=== PATIENT | female | born 1955 | race Two or more races ===

== ENCOUNTER 2025-01-14 10:05 | Inpatient (IN) | payer MEDICARE, MEDICAID ==
[~2025-01-14] VITALS: Ht 160 cm; Wt 112.0 kg
--- NOTE | 2025-01-14 10:23 | ED.PDOC ---
HPI Comments HPI: Pb 70 y.o female presents to the ED for a chief complaint of intermittent chest pain that started 2 days ago. Patient reports pain presents spontaneously at rest of on exertion and states it only lasts a couple minutes before is subsides. Patient mentions there are no alleviating or precipitating factors. Patient denies any nausea, vomiting, diarrhea, fever, chills, SOB, leg swelling, or recent illness. Patient is on aspirin 81mg. At this time, patient denies any chest pain upon assessment. Vitals Temp: 97.6 F HR:104 BP: 102/64 RR: 18 SPO2: 93% RA Past Medical history: HTN. HLD, DM Past Surgical history: CABG x4-5 yrs ago and appendectomy Social History: Denies smoking, ETOH, and drug use. Allergies: NKA PB: CP HPI: Poor Historian. Past Medical History: Past Surgical History: REVIEW OF SYSTEMS: CONSTITUTIONAL: Denies acute: fever, diaphoresis, chills, generalized weakness. HEAD: Denies acute: headache, photophobia Eyes: Denies acute: Double vision, vision loss, eye pain, eye discharge. EARS: Denies acute: tinnitus, hearing loss, ear discharge, ear pain, THROAT: Denies acute: sore throat, swelling, difficulty swallowing , pain with swallowing, change in voice. NECK: Denies acute: neck pain, neck swelling, stiff neck. HEART: Denies acute : palpitations, LUNGS: Denies acute: SOB, wheezing, cough, hemoptysis ABDOMEN: Denies acute: abdominal pain, Nausea, Vomiting, diarrhea, melena , hematemesis, hematochezia SKIN: Denies acute: rash, redness, lesions, itchiness. EXTREMITIES: Denies acute: calf pain, numbness, tingling, weakness, denies pain in extremity. Denies acute: Low back pain. Neuro: Denies acute: focal neurological deficit, motor or sensory focal neurological deficit, tremors, seizure like activity, confusion, dizziness, change in mental status, loss of bowel or bladder function, cauda equina like symptoms. : Denies acute: dysuria, hematuria, flank pain, increase in urinary frequency. PSYCH: Denies acute: hallucination, suicidal ideation, homicidal ideation. FEMALE: Denies acute: abnormal vaginal bleeding, foul odor, unusual discharge. PHYSICAL EXAM: General: ---mild-----acute distress, awake and alert. Head: normocephalic, atraumatic. Neck: supple, trachea is midline, no swelling. Throat: Normal phonation. Eyes:, no erythema, no purulent discharge, no proptosis, no icterus. Heart: regular TACHYCARDIA, no significant murmur appreciated. Lungs: no apparent respiratory distress, Able to speak in full sentences. No wheezing, no rhonchi, no crackles. No stridors Clear to auscultation bilaterally. Abdomen: non tender to palpation, non distended, soft, no guarding, no rebound, + bowel sounds. Obese Neuro: Awake, Alert, oriented to name, self, situation, follows commands GCS=15. Speech is normal. Skin: no petechia, no purpura, no cyanosis, non-pale, not jaundice. Lower extremities: --1/4 bilateral- Pitting edema no deformity, no focal swelling, no calf TTP. Makes eye contact. moves all four extremities. Face: no apparent facial droop. Ambulating in the ED independently with a cane ED COURSE: DISCLAIMER: This medical document was created using an electronic medical record system with voice recognition software and computerized dictation system. Although this document has been carefully reviewed, there might still be some phonetic and typographical errors. Occasional wrong-word or "sound-alike" substitutions may have occurred due to the inherent limitations of voice recognition software. These areas are purely typographical due to imperfections of the software programs and do not reflect any compromise in the patient's medical care. Please read the chart carefully and recognize, using context, where these substitutions have occurred. Chief Complaint: Chest Pain Time Seen by MD: 10:20 Reviewed Notes: Medications, Allergies Allergies: Coded Allergies: Cephalexin (Verified Allergy, Unknown, 01/14/25) Information Source: Patient Mode of Arrival: Ambulatory Severity: Moderate Timing: Days (2) Duration: Intermittent Past Medical History PAST MEDICAL HISTORY: DM, High Lipids, HTN Surgical History: Appendectomy, CABG FACILITIES ENGINEERING MANAGER History: No Pertinent FACILITIES ENGINEERING MANAGER History Family History Family History: Unknown Social History Smoker: Non-Smoker Alcohol: Denies ETOH Use Drugs: Denies Drug Use Lives In: Home Was a procedure done? Was a procedure done?: No CP Differential Dx Differential Diagnosis: Sinus Tachycardia Differential Diagnosis: Angina, Chest Wall Pain, Myocardial Infarction, Pericarditis X-Ray, Labs, Meds, VS Vital Signs Date Time Temp Pulse Resp B/P (MAP) Pulse Ox O2 Delivery O2 Flow Rate FiO2 01/14/25 17:00 135 19 99/64 (76) 93 01/14/25 16:00 135 01/14/25 15:15 134 17 99/57 (71) 92 01/14/25 13:25 133 01/14/25 12:45 78/55 01/14/25 11:28 139 18 92 Room Air* 0 21 01/14/25 11: 97.9 140 18 79/62 (68) 92 97.9 01/14/25 11:12 137 01/14/25 10:16 138 01/14/25 10:07 97.6 104 18 102/64 93 97.6 Lab Test 01/14/25 16:40 01/14/25 16:32 01/14/25 15:15 01/14/25 11:55 Range/Units Troponin I High Sensitivity 17 19 18 </=34 ng/L Urine Color Colorless Yellow Urine Clarity Turbid H Clear Urine pH 5.0 5.0-9.0 Urine Specific [place] 1.018 1.001-1.035 Urine Protein Trace H Negative Urine Ketones Negative Negative Urine Blood Trace H Negative /uL Urine Nitrite 2+ H Negative Urine Bilirubin Negative Negative Urine Urobilinogen Normal Negative mg/dL Urine Leukocyte Esterase 3+ Negative /uL Urine RBC 18 0 - 4 /hpf Urine WBC Clumps Present None Seen /hpf Urine Microscopic WBC 172 H 0-5 /HPF Urine Squamous Epithelial Cells Few <5 /hpf Urine Bacteria Few H None Seen /hpf Urine Mucus Few None Seen Urine Yeast (Budding) Few None Seen /hpf Urine Glucose 4+ H Normal mg/dL White Blood Count 11.1 H 4.4-10.8 10^3/uL Red Blood Count 5.40 H 4.0-5.20 10^6/uL Hemoglobin 14.2 12.2-16.2 g/dL Hematocrit 46.7 H 36.0-46.0 % Mean Corpuscular Volume 86.4 80.0-100.0 fL Mean Corpuscular Hemoglobin 26.4 L 28.0-32.0 pg Mean Corpuscular Hemoglobin Concent 30.5 L 32.0-36.0 g/dL Red Cell Distribution Width 17.7 H 11.8-14.3 % Platelet Count 248 140-450 10^3/uL Mean Platelet Volume 7.7 6.9-10.8 fL Neutrophils (%) (Auto) 64.7 37.0-80.0 % Lymphocytes (%) (Auto) 25.2 10.0-50.0 % Monocytes (%) (Auto) 8.3 0.0-12.0 % Eosinophils (%) (Auto) 1.3 0.0-7.0 % Basophils (%) (Auto) 0.5 0.0-2.0 % Neutrophils # (Auto) 7.2 1.6-8.6 10 ^3/uL Lymphocytes # (Auto) 2.8 0.4-5.4 10 ^3/uL Monocytes # (Auto) 0.9 0-1.3 10 ^3/uL Eosinophils # (Auto) 0.1 0-0.8 10 ^3/uL Basophils # (Auto) 0.1 0-0.2 10 ^3/uL Nucleated Red Blood Cells 0.2 % D-Dimer, Quantitative 2.33 H 0.0-0.49 mg/L FEU Sodium Level 139 136-145 mmol/L Potassium Level 5.3 H 3.5-5.1 mmol/L Chloride Level 108 H 98-107 mmol/L Carbon Dioxide Level 19 L 20-31 mmol/L Anion Gap 12 5-15 Blood Urea Nitrogen 30 H 9-23 mg/dL Creatinine 1.39 H 0.550-1.02 mg/dL Glomerular Filtration Rate Calc 41 >90 mL/min BUN/Creatinine Ratio 21.6 H 10.0-20.0 Serum Glucose 158 H 74-106 mg/dL Calcium Level 8.9 8.7-10.4 mg/dL Magnesium Level 2.4 1.6-2.6 mg/dL Total Bilirubin 0.3 0.2-1.0 mg/dL Aspartate Amino Transferase (AST) 21 13-40 U/L Alanine Aminotransferase (ALT) 22 7-40 U/L Alkaline Phosphatase 62 46-116 U/L B-Type Natriuretic Peptide 593.98 0-100 pg/mL Total Protein 6.5 5.7-8.2 g/dL Albumin 4.1 3.2-4.8 g/dL [place] [address] Ph: [phone] DIAGNOSTIC IMAGING Diagnostic Imaging Report : [id number] Signed PATIENT: KIANA MEHTA ACCT: [id number] UNIT: [id number] : 1955 LOC: ER ROOM / BED: / AGE / SEX: 69 / F ADM STATUS: REG ER SERVICE [id number] ORDERING PHYSICIAN: ANA ELIAS DO PROCEDURE(s): CXRP - CHEST PORTABLE REASON: cp ORDER NUMBER(s): [id number], ACCESSION NUMBER(s): [id number] EXAM: XY CHEST PORTABLE Indication: cp Technique: Single frontal view of the chest was obtained Comparison: None FINDINGS: Lines and Tubes: None Lungs: No focal consolidation. Pleura: No effusion. No pneumothorax. Cardiomediastinal contours: Unremarkable. Atherosclerotic vascular calcifications of the thoracic aorta are noted. Bones: No acute osseous abnormality. IMPRESSION: No acute cardiopulmonary disease. ATED BY: UGO RAPHAEL MD DICTATED DATE/TIME: 01/14/25 111 SIGNED BY: UGO RAPHAEL MD SIGNED DATE/TIME: 01/14/25 1119 CC: [place] [id number] Ph: [phone] DIAGNOSTIC IMAGING Diagnostic Imaging Report : [id number] Signed PATIENT: KIANA MEHTA ACCT: [id number] UNIT: [id number] : 1955 LOC: ER ROOM / BED: / AGE / SEX: 69 / F ADM STATUS: REG ER SERVICE [id number] ORDERING PHYSICIAN: ANA ELIAS DO PROCEDURE(s): CTACH - CT ANGIO CHEST CONTRAST REASON: cp ORDER NUMBER(s): [id number], ACCESSION NUMBER(s): [id number] CTA Chest with intravenous contrast INDICATION: cp COMPARISON: None TECHNIQUE: Multidetector spiral CTA of the chest was performed of the chest with intravenous contrast. PULMONARY ANGIOGRAPHY PROTOCOL was utilized using a bolus- tracking technique centered on the main pulmonary artery. Axial, coronal and sagittal multiplanar and MIP reformats were performed. CONTRAST: Type of contrast: Omni 350 Contrast injected: 100 ml Radiation dose : Chest: CTDI volume is 38 mGy. Dose-length product is 1053 mGy*cm The dose indicators for CT are the volume computed Tomography (CT) dose Index (CTDIvol) and the dose Length product (DLP), and are measured in units of mGy and mGy-cm, respectively. These indicators are not patient dose, but values generated from the CT scanner acquisition factors. The report includes radiation exposure data for exposures received during this examination. Findings: Pulmonary artery: No pulmonary embolism. Main pulmonary artery dilated. Lower neck: Calcified left thyroid cyst or nodule. Lungs: Mild consolidation right lung base. Atelectasis in the lung bases. Heart/Vascular Structures: Kblt-ey-tggldror cardiomegaly. Lymph Nodes: Subcentimeter mediastinal lymph nodes. Pleura: No pleural effusion or significant pneumothorax. Musculoskeletal: No acute osseous abnormality. Soft tissues: Normal. Upper abdomen: Limited portions of the upper abdomen are unremarkable. IMPRESSION: 1. No pulmonary embolism. Main pulmonary artery dilated suggesting pulmonary arterial hypertension. [id number] cardiomegaly. 2. Mild consolidation in the right lower lung. Atelectasis in the lung bases. Clinical correlation and continued follow-up is recommended. HS:Y ATED BY: WILLEM WADE MD DICTATED DATE/TIME: 01/14/251717 SIGNED BY: WILLEM WADE MD SIGNED DATE/TIME: 01/14/251717 CC: Time of 1ST Reevaluation: 13:43 ( OF NOW ALL LABS ARE STILL PENDING ACCEPT D- DIMER AND BNP) Reevaluation 1ST: Unchanged Time of 2ND Reevaluation: 16:01 ( OF NOW CHEMISTRY IS STILL PENDING. NEEDED FOR CTA ANGIOGRAM OF THE CHEST) Reevaluation 2ND: Improved Patient Education/Counseling: Diagnosis, Treatment Family Education/Counseling: Other Comments MDM: patient presented with the above HPI.-cardiac----workup was initiated. patient was found with the above mentioned diagnosis. the following medications were ordered: please refer to order lists of meds and tests obtained by myself Dr. Elias. Patient ED course and VS have been stabilized. Patient has been reassessed in the ED and remained in a stable condition. Pertinent incidental findings were discussed with the patient and/or family. Patient/family voices understanding and is agreeable with plan. Patient has been observed in the ED adequate length of time to insure improvement/stability. Escalation of care considered: Consideration of escalation to observation or admission Patient was given Lasix, aspirin, rule out PE. Patient was ADMITTED to the medicine team for further evaluation and treatment of their presentation. All the reports of any imaging studies that were ordered by myself were reviewed by myself. Departure 1 Departure Time of Disposition: 10:54 Impression: Primary Impression: Chest pain Additional Impressions: Left bundle branch block Hypotension Tachycardia Lung consolidation Pulmonary artery hypertension UTI (urinary tract infection) Disposition: ADMITTED INPATIENT Admit to: Tele Condition: Guarded Discharged With: Self Critical Care Note Critical Care Time?: Yes (1 hr-critical care time only) Heart Score Heart Score: Heart Score Response (Comments) Value History Moderate Suspicious 1 EKG Normal 0 Age >65 2 Risk Factors >3 or Hx ASHD 2 Troponin Normal limit 0 Total 5 I personally scribed for ANA ELIAS DO ([email or web address]) on 01/14/25 at 10:23. Electronically submitted by Zeny Osman ([facility]). I personally scribed for ANA ELIAS DO ([email or web address]) on 01/14/25 at 10:30. Electronically submitted by Zeny Osman ([facility]). I personally scribed for ANA ELIAS DO ([email or web address]) on 01/14/25 at 12:45. Electronically submitted by Zeny Osman ([facility]). ANA ELIAS DO Jan 14, 2025 10:23
--- NOTE | 2025-01-14 11:21 | DVH ---
EXAM: XY CHEST PORTABLE Indication: cp Technique: Single frontal view of the chest was obtained Comparison: None FINDINGS: Lines and Tubes: None Lungs: No focal consolidation. Pleura: No effusion. No pneumothorax. Cardiomediastinal contours: Unremarkable. Atherosclerotic vascular calcifications of the thoracic ao rta are noted. Bones: No acute osseous abnormality. IMPRESSION: No acute cardiopulmonary disease.
[2025-01-14 11:28] VITALS: PULSE 139; RESP 18; O2SAT 92
[2025-01-14] MEDS: SODIUM CHLORIDE 0.9% 1,000 ML IV ONE (11:40)
[2025-01-14] MEDS: FUROSEMIDE 20 MG/2 ML VIAL IV ONE (12:45)
[2025-01-14 15:29] LABS: Hemoglobin 14.2 g/dL (12.2-16.2)
[2025-01-14] MEDS ORDERED: HYDROcodone-ACET 5/325MG TAB PO PRN (15:30)
[2025-01-14] MEDS ORDERED: DEXTROSE (50%) 50ML SYRG IV PRN (15:30)
[2025-01-14] MEDS ORDERED: ONDANSETRON HCL 4 MG/2 ML VIAL IV PRN (15:30)
[2025-01-14] MEDS ORDERED: DOCUSATE SOD 100 MG CAP PO PRN (15:30)
[2025-01-14] MEDS ORDERED: ACETAMINOPHEN 325 MG TAB PO PRN (15:30)
[2025-01-14 15:31] LABS: Hematocrit 46.7 % (36.0-46.0); Mean Corpuscular Hemoglobin 26.4 pg (28.0-32.0); Mean Corpuscular Volume 86.4 fL (80.0-100.0); Nucleated Red Blood Cells % 0.2 %
[2025-01-14 16:07] LABS: Alanine Aminotransferase 22 U/L (7-40); Albumin 4.1 g/dL (3.2-4.8); Alkaline Phosphatase 62 U/L (46-116); Anion Gap 12 (5-15); BUN/Creatinine Ratio 21.6 (10.0-20.0); Calcium 8.9 mg/dL (8.7-10.4); Sodium 139 mmol/L (136-145); Total Protein 6.5 g/dL (5.7-8.2)
[2025-01-14 16:09] LABS: Bilirubin, Total 0.3 mg/dL (0.2-1.0); Blood Urea Nitrogen 30 mg/dL (9-23); Carbon Dioxide 19 mmol/L (20-31); Chloride 108 mmol/L (98-107); Glucose 158 mg/dL (74-106); Potassium 5.3 mmol/L (3.5-5.1)
[2025-01-14] MEDS: IOHEXOL 350 MG/ML 100ML IJ ONE (16:54)
[2025-01-14] MEDS: MIDODRINE HCL 10 MG TAB PO ONE ×2 (17:10→23:21)
[2025-01-14] MEDS: ACCU-CHEK COMFORT CURVE STRIP VI SCH (17:12)
[2025-01-14] MEDS: InsuLIN REG 1unit/0.01ml Soln (100units/ml) SC SCH ×2 (17:18→21:42)
--- NOTE | 2025-01-14 17:20 | DVH ---
CTA Chest with intravenous contrast INDICATION: cp COMPARISON: None TECHNIQUE: Multidetector spiral CTA of the chest was performed of the chest with intravenous contrast . PULMONARY ANGIOGRAPHY PROTOCOL was utilized using a bolus-tracking technique centered on the main p ulmonary artery. Axial, coronal and sagittal multiplanar and MIP reformats were performed. CONTRAST: Type of contrast: Omni 350 Contrast injected: 100 ml Radiation dose : Chest: CTDI volume is 38 mGy. Dose-length product is 1053 mGy*cm The dose indicators for CT are the volume computed Tomography (CT) dose Index (CTDIvol) and the dose Length product (DLP), and are measured in units of mGy and mGy-cm, respectively. These indicators are not patient dose, but values generated from the CT scanner acquisition factors. The report includes radiation exposure data for exposures received during this examination. Findings: Pulmonary artery: No pulmonary embolism. Main pulmonary artery dilated. Lower neck: Calcified left thyroid cyst or nodule. Lungs: Mild consolidation right lung base. Atelectasis in the lung bases. Heart/Vascular Structures: Zjbu-wv-trmwtznc cardiomegaly. Lymph Nodes: Subcentimeter mediastinal lymph nodes. Pleura: No pleural effusion or significant pneumothorax. Musculoskeletal: No acute osseous abnormality. Soft tissues: Normal. Upper abdomen: Limited portions of the upper abdomen are unremarkable. IMPRESSION: 1. No pulmonary embolism. Main pulmonary artery dilated suggesting pulmonary arterial hypertension. M oob-lc-wxposini cardiomegaly. 2. Mild consolidation in the right lower lung. Atelectasis in the lung bases. Clinical correlation and continued follow-up is recommended. HS:Y
--- NOTE | 2025-01-14 17:38 | DVHHP2 ---
History of Present Illness Reason for Visit: Acute chest pain History of Present Illness The patient is a 70-year-old female with past medical history of hypertension, hyperlipidemia, and diabetes mellitus who presented to [facility] ED with complaint of chest pain. Patient reports she has been experiencing spontane ous chest pain at rest, on exertion, rating 7/10 numeric scale, getting worse that prompted this visit. Patient was seen and evaluated in the ED, laboratory data shows WBC 11.1, platelets 248, sodium 139, potassium 5.3, BUN 30, creatinine 1.39, glucose 158, calcium 8.9, troponin 19, D-dimer 2.33, BNP 593.98, blood pressure 96/72, heart rate 133, temperature 97.9 F, O2 saturation 92% on oxygen. CT Angiography showed no pulmonary embolism; main pulmonary artery dilated suggesting pulmonary atrial hypertension, mild to moderate cardiomegaly, mild consolidation in the right lower lungs. Please see medication orders section in the computer. On my assessment, patient denied chest pain at this moment, no headache, no dizziness, no diaphoresis, currently on oxygen, no nausea, no vomiting, no fever, no chills. Patient was admitted for further evaluation and medical management. Past Medical History HTN. HLD, DM Past Surgical History CABG x4-5 yrs ago, Appendectomy Family History Reviewed, noncontributory to the management of this case. Past Social History The patient lives at home, denies smoking, alcohol or illicit drugs abuse. Review of Systems Constitutional: Yes: Weakness; No: Fever, Chills, Sweats, Malaise, Other Eyes: No: Pain, Vision change, Conjunctivae inflammation, Eyelid inflammation, Other, Redness ENT: No: Ear pain, Ear discharge, Nose pain, Nose discharge, Nose congestion, Mouth pain, Mouth swelling, Throat pain, Throat swelling, Other Respiratory: Shortness of breath, SOB with excertion, Other (SOB at rest); No: Cough, Dry, Wheezing, Hemoptysis, Pleuritic Pain, Sputum, Wheezing Cardiovascular: Chest Pain; No: Palpitations, Orthopnea, Paroxysmal Noc. Dyspnea, Edema, Lt Headedness, Other Gastrointestinal: No: Nausea, Vomiting, Abdominal Pain, Diarrhea, Constipation, Melena, Hematochezia, Other Genitourinary: No Dysuria, No Frequency, No Incontinence, No Hematuria, No Retention, No Other Musculoskeletal: No: other, neck pain, shoulder pain, arm pain, back pain, hand pain, leg pain, foot pain Skin: No: Rash, Lesions, Jaundice, Bruising, Other Neurological: No: Weakness, Numbness, Incoordination, Change in speech, Conf usion, Seizures, Other Allergies: Coded Allergies: Cephalexin (Verified Allergy, Unknown, 01/14/25) Medications Current Medications Medications Dose Ordered Sig/Porfirio Route Start Time Stop Time Status Last Admin Dose Admin Aspirin 81 mg DAILY PO 01/15/25 10:00 Atorvastatin Calcium 20 mg HS PO 01/14/25 22:00 Gabapentin 300 mg TID PO 01/14/25 22:00 Carvedilol 3.125 mg Q12HR PO 01/14/25 22:00 Lisinopril 5 mg DAILY PO 01/15/25 10:00 Furosemide 20 mg DAILY IV 01/15/25 10:00 Midodrine 10 mg TID@0600,1200,1800 PO 01/14/25 18:00 Diagnostic Test (Pha) 1 strip ACHS 01/14/25 17:00 01/14/25 17:12 1 STRIP Insulin Human Regular HS SC 01/14/25 22:00 Insulin Human Regular AC SC 01/14/25 17:00 01/14/25 17:18 3 UNITS Dextrose 50 ml UD PRN IV 01/14/25 15:30 Sodium Chloride 10 ml Q8HR IV 01/14/25 22:00 Acetaminophen/ Hydrocodone Bitart 1 tab Q4HP PRN PO 01/14/25 15:30 Ondansetron HCl 4 mg Q4HP PRN IV 01/14/25 15:30 Docusate Sodium 100 mg BIDPRN PRN PO 01/14/25 15:30 Acetaminophen 650 mg Q6HP PRN PO 01/14/25 15:30 Exam Vital Signs Vital Signs Date Time Temp Pulse Resp B/P (MAP) Pulse Ox O2 Delivery O2 Flow Rate FiO2 01/14/25 13:25 133 01/14/25 12:45 78/55 01/14/25 11:28 18 92 Room Air* 0 21 01/14/25 11:25 97.9 97.9 General Appearance: Alert, Oriented X3, Cooperative, No acute distress HEENT: Atraumatic, PERRLA, EOMI, Mucous membr. moist/pink Respiratory: Normal air movement, Other (Diminished breath sounds) Cardiovascular: Regular rate, Normal S1, Normal S2 Abdominal: Normal bowel sounds, Soft, No tenderness, No hepatospenomegaly, No masses Extremities: No clubbing, No cyanosis, No edema, Normal pulses, No tenderness/swelling Skin: No rashes, No breakdown, No significant lesion Neuro: Normal speech, Normal tone, Sensation intact, Cranial nerves 3-12 NL, Reflexes 2+ Psych/Mental Status: Mental status NL, Mood NL Labs/Xrays Labs Test 01/14/25 16:40 01/14/25 15:15 01/14/25 11:55 Range/Units Troponin I High Sensitivity 17 </=34 ng/L White Blood Count 11.1 H 4.4-10.8 10^3/uL Red Blood Count 5.40 H 4.0-5.20 10^6/uL Hemoglobin 14.2 12.2-16.2 g/dL Hematocrit 46.7 H 36.0-46.0 % Mean Corpuscular Volume 86.4 80.0-100.0 fL Mean Corpuscular Hemoglobin 26.4 L 28.0-32.0 pg Mean Corpuscular Hemoglobin Concent 30.5 L 32.0-36.0 g/dL Red Cell Distribution Width 17.7 H 11.8-14.3 % Platelet Count 248 140-450 10^3/uL Mean Platelet Volume 7.7 6.9-10.8 fL Neutrophils (%) (Auto) 64.7 37.0-80.0 % Lymphocytes (%) (Auto) 25.2 10.0-50.0 % Monocytes (%) (Auto) 8.3 0.0-12.0 % Eosinophils (%) (Auto) 1.3 0.0-7.0 % Basophils (%) (Auto) 0.5 0.0-2.0 % Neutrophils # (Auto) 7.2 1.6-8.6 10 ^3/uL Lymphocytes # (Auto) 2.8 0.4-5.4 10 ^3/uL Monocytes # (Auto) 0.9 0-1.3 10 ^3/uL Eosinophils # (Auto) 0.1 0-0.8 10 ^3/uL Basophils # (Auto) 0.1 0-0.2 10 ^3/uL Nucleated Red Blood Cells 0.2 % D-Dimer, Quantitative 2.33 H 0.0-0.49 mg/L FEU Sodium Level 139 136-145 mmol/L Potassium Level 5.3 H 3.5-5.1 mmol/L Chloride Level 108 H 98-107 mmol/L Carbon Dioxide Level 19 L 20-31 mmol/L Anion Gap 12 5-15 Blood Urea Nitrogen 30 H 9-23 mg/dL Creatinine 1.39 H 0.550-1.02 mg/dL Glomerular Filtration Rate Calc 41 >90 mL/min BUN/Creatinine Ratio 21.6 H 10.0-20.0 Serum Glucose 158 H 74-106 mg/dL Calcium Level 8.9 8.7-10.4 mg/dL Magnesium Level 2.4 1.6-2.6 mg/dL Total Bilirubin 0.3 0.2-1.0 mg/dL Aspartate Amino Transferase (AST) 21 13-40 U/L Alanine Aminotransferase (ALT) 22 7-40 U/L Alkaline Phosphatase 62 46-116 U/L B-Type Natriuretic Peptide 593.98 0-100 pg/mL Total Protein 6.5 5.7-8.2 g/dL Albumin 4.1 3.2-4.8 g/dL PATIENT: KIANA MEHTA ACCT: [id number] UNIT: [id number] : 1955 LOC: ER ROOM / BED: / AGE / SEX: 69 / F ADM STATUS: REG ER SERVICE 1237 ORDERING PHYSICIAN: ANA ELIAS DO PROCEDURE(s): CTACH - CT ANGIO CHEST CONTRAST REASON: cp ORDER NUMBER(s): [id number], ACCESSION NUMBER(s): [id number] CTA Chest with intravenous contrast INDICATION: cp COMPARISON: None TECHNIQUE: Multidetector spiral CTA of the chest was performed of the chest with intravenous contrast. PULMONARY ANGIOGRAPHY PROTOCOL was utilized using a bolus- tracking technique centered on the main pulmonary artery. Axial, coronal and sagittal multiplanar and MIP reformats were performed. CONTRAST: Type of contrast: Omni 350 Contrast injected: 100 ml Radiation dose: Chest: CTDI volume is 38 mGy. Dose-length product is 1053 mGy*cm The dose indicators for CT are the volume computed Tomography (CT) dose Index (CTDIvol) and the dose Length product (DLP), and are measured in units of mGy and mGy-cm, respectively. These indicators are not patient dose, but values generated from the CT scanner acquisition factors. The report includes radiation exposure data for exposures received during this examination. Findings: Pulmonary artery: No pulmonary embolism. Main pulmonary artery dilated. Lower neck: Calcified left thyroid cyst or nodule. Lungs: Mild consolidation right lung base. Atelectasis in the lung bases. Heart/Vascular Structures: [id number] cardiomegaly. Lymph Nodes: Subcentimeter mediastinal lymph nodes. Pleura: No pleural effusion or significant pneumothorax. Musculoskeletal: No acute osseous abnormality. Soft tissues: Normal. Upper abdomen: Limited portions of the upper abdomen are unremarkable. IMPRESSION: 1. No pulmonary embolism. Main pulmonary artery dilated suggesting pulmonary arterial hypertension. Dhrc-[id number] cardiomegaly. 2. Mild consolidation in the right lower lung. Atelectasis in the lung bases. Clinical correlation and continued follow-up is recommended. ORDERING PHYSICIAN: ANA ELIAS DO PROCEDURE(s): CXRP - CHEST PORTABLE REASON: cp ORDER NUMBER(s): [id number], ACCESSION NUMBER(s): [id number] EXAM: XY CHEST PORTABLE Indication: cp Technique: Single frontal view of the chest was obtained Comparison: None FINDINGS: Lines and Tubes: None Lungs: No focal consolidation. Pleura: No effusion. No pneumothorax. Cardiomediastinal contours: Unremarkable. Atherosclerotic vascular lenora cifications of the thoracic aorta are noted. Bones: No acute osseous abnormality. IMPRESSION: No acute cardiopulmonary disease. SEPSIS Sepsis Screen Date sepsis recognized/suspect: Jan 14, 2025 Time Sepsis recognized/suspect: 1010 Recent Procedure: No On Antibiotic Therapy: No Respiratory Rate >20: No Heart Rate >90: No Temp<36 C (96.8 F) or >38.3 C: No SBP <90 or MAP <65 mmHG: No New Acute Mental Status Change: No Is the patient on CPAP, BIPAP,: No Physician Orders Electrocardigram (01/14/25 10:11) Electrocardigram (01/14/25 11:11) Electrocardigram (01/14/25 13:11) Mobile Device Developer (01/14/25 ) Chest Portable (01/14/25 10:24) Ct Angio Chest Contrast (01/14/25 12:37) Aspirin Tablet (01/15/25 10:00) Atorvastatin (Lipitor) (01/14/25 22:00) Gabapentin Capsule (Neurontin Capsule) (01/14/25 22:00) Carvedilol Tablet (Coreg Tablet) (01/14/25 22:00) Lisinopril Tablet (Zestril Tablet) (01/15/25 10:00) Furosemide Injection (Lasix Injection) (01/15/25 10:00) Consistent Carb(Ccho)Diabetes (01/14/25 Dinner) Midodrine Tablet (Proamatine Tablet) (01/14/25 18:00) Glucose Blood (Accu-Chek Comfort Curve T (01/14/25 17:00) Insulin R (Human) (Insulin R) (01/14/25 22:00) Insulin R (Human) (Insulin R) (01/14/25 17:00) Dextrose 50% Syringe (01/14/25 15:30) Allergies (01/14/25 15:29) Code Status (01/14/25 15:29) Sodium Chloride Lock (Saline Lock Ns) (01/14/25 22:00) Oxygen Per Hour (01/14/25 15:29) Hydrocodone-Acet 5/325mg Tab ([place] 5/32 (01/14/25 15:30) Ondansetron Hcl (Zofran) (01/14/25 15:30) Docusate Sodium Capsule (Colace Capsule) (01/14/25 15:30) Complete Blood Count (01/15/25 04:00) Comprehensive Metabolic Panel (01/15/25 04:00) Echo 2d Mode Cardiac Dop (01/14/25 15:29) Condition: Serious (01/14/25 15:29) Acetaminophen Tablet (Tylenol Tablet) (01/14/25 15:30) Bedrest With Bathroom Privileg (01/14/25 15:29) Sequential Compression Device (01/14/25 ) * Cardiology Consult (01/14/25 15:42) Admit (01/14/25 17:35) Nitroglycerin Sublingual (Ntrostat Subli (01/14/25 17:45) Morphine Sulfate Injection (01/14/25 17:45) Stat Ekg For Chest Pain (01/14/25 17:35) Vital Signs Date Time Temp Pulse Resp B/P (MAP) Pulse Ox O2 Delivery O2 Flow Rate FiO2 01/14/25 13:25 133 01/14/25 12:45 78/55 01/14/25 11:28 139 18 92 Room Air* 0 21 01/14/25 11:25 97.9 140 18 79/62 (68) 92 97.9 01/14/25 11:12 137 01/14/25 10:16 138 01/14/25 10:07 97.6 104 18 102/64 93 97.6 Laboratory Tests Test 01/14/25 15:15 White Blood Count 11.1 10^3/uL (4.4-10.8) H Medications Medications Dose Ordered Sig/Porfirio Route Start Time Stop Time Status Last Admin Dose Admin Aspirin 325 mg ONCE ONCE PO 01/14/25 10:30 01/14/25 10:32 DC 01/14/25 11:41 325 MG Diagnostic Test (Pha) 1 strip ACHS 01/14/25 17:00 01/14/25 17:12 1 STRIP Insulin Human Regular AC SC 01/14/25 17:00 01/14/25 17:18 3 UNITS Midodrine 10 mg ONCE ONCE PO 01/14/25 15:30 01/14/25 16:00 DC 01/14/25 17:10 10 MG Sodium Chloride 1,000 ml @ 1,000 mls/hr Q1H ONCE IV 01/14/25 11:30 01/14/25 12:29 DC 01/14/25 11:40 1,000 MLS/HR Assessment/Plan Assessment/Plan Acute chest pain Hypotension Tachycardia Acute renal injury Left bundle branch block Pneumonia, unspecified organism Plan 1. Admit to telemetry unit 2. Breathing treatment 3. Pain control management 4. IV antibiotic management 5. Management of fluids and electrolytes 6. Consultation for Cardiology 7. Diagnostic test CT angiography 8. DVT prophylaxis-on aspirin 9. Repeat labs CBC, CMP in a.m. 10. Home medication reviewed and reconciled 11. Continue with current medical management 12. Treatment plan discussed with patient and RN. Patient verbalized understanding. Plan discussed with: Patient, Other (RN) My Orders Orders - YAA CHRISTENSEN DNP Procedure Category Date Status Time Aspirin Tablet PHA 01/15/25 In Process 10:00 Atorvastatin (Lipitor) PHA 01/14/25 In Process 22:00 Gabapentin Capsule PHA 01/14/25 In Process (Neurontin Capsule) 22:00 Carvedilol Tablet PHA 01/14/25 In Process (Coreg Tablet) 22:00 Lisinopril Tablet PHA 01/15/25 In Process (Zestril Tablet) 10:00 Furosemide Injection PHA 01/15/25 In Process (Lasix Injection) 10:00 Consistent DIET 01/14/25 Transmitted Carb(Ccho)Diabetes Dinner Midodrine Tablet PHA 01/14/25 In Process (Proamatine Tablet) 18:00 Glucose Blood PHA 01/14/25 In Process (Accu-Chek Comfort 17:00 Insulin R (Human) PHA 01/14/25 In Process (Insulin R) 22:00 Insulin R (Human) PHA 01/14/25 In Process (Insulin R) 17:00 Dextrose 50% Syringe PHA 01/14/25 In Process 15:30 Allergies HARSHA 01/14/25 In Process 15:29 Code Status CODE 01/14/25 Transmitted 15:29 Sodium Chloride Lock PHA 01/14/25 In Process (Saline Lock Ns) 22:00 Oxygen Per Hour RT 01/14/25 Transmitted 15:29 Hydrocodone-Acet PHA 01/14/25 In Process 5/325mg Tab ([place] 15:30 Ondansetron Hcl PHA 01/14/25 In Process (Zofran) 15:30 Docusate Sodium PHA 01/14/25 In Process Capsule (Colace 15:30 Complete Blood Count LAB 01/15/25 Verified 04:00 Comprehensive LAB 01/15/25 Verified Metabolic Panel 04:00 Echo 2d Mode Cardiac US 01/14/25 Logged DOP 15:29 Condition: Serious HARSHA 01/14/25 In Process 15:29 Acetaminophen Tablet PHA 01/14/25 In Process (Tylenol Tablet) 15:30 Bedrest With Bathroom HARSHA 01/14/25 In Process Privileg 15:29 Sequential HARSHA 01/14/25 In Process Compression Device * Cardiology Consult CONS 01/14/25 Transmitted 15:42 Admit ADMIT 01/14/25 Verified 17:35 Nitroglycerin PHA 01/14/25 Verified Sublingual (Ntrostat 17:45 Morphine Sulfate PHA 01/14/25 Verified Injection 17:45 Stat Ekg For Chest HARSHA 01/14/25 Verified Pain 17:35 Problem List: (1) Acute chest pain (2) Tachycardia (3) Hypotension (4) Acute renal injury (5) Left bundle branch block (6) Pneumonia, unspecified organism Date of Service: Jan 14, 2025 Billing Provider: YAA CHRISTENSEN DNP Common Visit Codes: [id number] INP/OBS CARE (HIGH) YAA CHRISTENSEN DNP Jan 14, 2025 17:38
[2025-01-14] MEDS ORDERED: NITROGLYCERIN 0.4 MG SL TAB SL PRN (17:45)
[2025-01-14] MEDS ORDERED: MORPHINE SULFATE INJ 2 MG/ml SYRG IV PRN (17:45)
[2025-01-14] MEDS: MIDODRINE HCL 10 MG TAB PO SCH (18:00)
[2025-01-14 19:30] VITALS: PULSE 131; RESP 24; TEMP 97.6; O2SAT 94
[2025-01-14 19:50] LABS: Urine Budding Yeast FEW /hpf (None Seen); Urine Protein, UAD TRACE (Negative); Urine WBC Clumps PRESENT /hpf (None Seen)
[2025-01-14] MEDS: AZITHROMYCIN 500MG/ 250ML 250 ML IV ONE (19:52)
[2025-01-14] MEDS: dilTIAZem 25 MG/5 ML VIAL IV ONE (20:27)
[2025-01-14] MEDS: AMIODARONE 360mg/200mL PREMIX 200 ML IV ONE (21:12)
[2025-01-14] MEDS: SODIUM CHLOR 0.9% PF (SALINE LOCK) 10ML VIAL/SYR IV SCH (21:32)
[2025-01-14] MEDS: ATORVASTATIN 20 MG TAB PO SCH (21:35)
[2025-01-14] MEDS: GABAPENTIN 300 MG CAP PO SCH (21:35)
[2025-01-14] MEDS: CARVEDILOL 3.125 MG TAB PO SCH (22:00)
[2025-01-14] MEDS ORDERED: NOREPINEPHRINE 8 MG/250ML KIT 250 ML IV SCH ×3 (22:30→22:45)
[2025-01-14] MEDS: NOREPINEPHRINE 8 MG/250ML KIT 250 ML IV ONE (22:34)
[2025-01-15] MEDS: AMIODARONE 360mg/200mL PREMIX 200 ML IV SCH (03:05)
[2025-01-15 06:22] LABS: Hematocrit 45.8 % (36.0-46.0); Hemoglobin 14.5 g/dL (12.2-16.2); Mean Corpuscular Hemoglobin 26.6 pg (28.0-32.0); Mean Corpuscular Volume 83.9 fL (80.0-100.0); Nucleated Red Blood Cells % 0.1 %
[2025-01-15] MEDS: MIDODRINE HCL 10 MG TAB PO SCH (06:32)
[2025-01-15 06:47] LABS: Alanine Aminotransferase 39 U/L (7-40); Alkaline Phosphatase 67 U/L (46-116); Anion Gap 12 (5-15); BUN/Creatinine Ratio 26.9 (10.0-20.0); Calcium 8.9 mg/dL (8.7-10.4); Chloride 106 mmol/L (98-107); Sodium 137 mmol/L (136-145); Total Protein 6.5 g/dL (5.7-8.2)
[2025-01-15 06:48] LABS: Albumin 3.9 g/dL (3.2-4.8)
[2025-01-15 06:50] LABS: Bilirubin, Total 0.2 mg/dL (0.2-1.0); Blood Urea Nitrogen 35 mg/dL (9-23); Carbon Dioxide 19 mmol/L (20-31); Glucose 153 mg/dL (74-106); Potassium 5.2 mmol/L (3.5-5.1)
[2025-01-15 07:45] VITALS: PULSE 125; RESP 17; O2SAT 98
[2025-01-15 08:00] VITALS: BP 115/80; PULSE 125
[2025-01-15] MEDS ORDERED: DEXTROSE (50%) 50ML SYRG IV ONE (08:45)
[2025-01-15] MEDS ORDERED: InsuLIN REG 1unit/0.01ml Soln (100units/ml) IV ONE (08:45)
[2025-01-15 09:17] VITALS: RESP 16
[2025-01-15] MEDS: ALBUTEROL SULF 2.5 MG/0.5ML(0.5%) NEB SOLN NEB ONE (09:17)
[2025-01-15 09:19] VITALS: O2SAT 94
[2025-01-15] MEDS ORDERED: CARVEDILOL 3.125 MG TAB PO SCH (10:00)
[2025-01-15] MEDS ORDERED: LISINOPRIL 5 MG TAB PO SCH (10:00)
[2025-01-15] MEDS ORDERED: FUROSEMIDE 20 MG/2 ML VIAL IV SCH (10:00)
--- NOTE | 2025-01-15 12:41 | DVHDSRES ---
Discharge Summary Date of Admission Resident Creating Document: SANDEEP DANIEL RESIDENT Jan 14, 2025 at 17:35 Date of Discharge: Jan 15, 2025 Admitting Diagnosis chest pain Labs/Diagnostic Data: Laboratory Results Test 01/15/25 05:53 01/14/25 21:38 01/14/25 16:40 01/14/25 16:32 White Blood Count 11.8 10^3/uL (4.4-10.8) Red Blood Count 5.46 10^6/uL (4.0-5.20) Hemoglobin 14.5 g/dL (12.2-16.2) Hematocrit 45.8 % (36.0-46.0) Mean Corpuscular Volume 83.9 fL (80.0-100.0) Mean Corpuscular Hemoglobin 26.6 pg (28.0-32.0) Mean Corpuscular Hemoglobin Concent 31.7 g/dL (32.0-36.0) Red Cell Distribution Width 17.5 % (11.8-14.3) Platelet Count 250 10^3/uL (140-450) Mean Platelet Volume 8.0 fL (6.9-10.8) Neutrophils (%) (Auto) 65.1 % (37.0-80.0) Lymphocytes (%) (Auto) 24.8 % (10.0-50.0) Monocytes (%) (Auto) 8.5 % (0.0-12.0) Eosinophils (%) (Auto) 0.9 % (0.0-7.0) Basophils (%) (Auto) 0.7 % (0.0-2.0) Neutrophils # (Auto) 7.7 10 ^3/uL (1.6-8.6) Lymphocytes # (Auto) 2.9 10 ^3/uL (0.4-5.4) Monocytes # (Auto) 1.0 10 ^3/uL (0-1.3) Eosinophils # (Auto) 0.1 10 ^3/uL (0-0.8) Basophils # (Auto) 0.1 10 ^3/uL (0-0.2) Nucleated Red Blood Cells 0.1 % Sodium Level 137 mmol/L (136-145) Potassium Level 5.2 mmol/L (3.5-5.1) Chloride Level 106 mmol/L (98-107) Carbon Dioxide Level 19 mmol/L (20-31) Anion Gap 12 (5-15) Blood Urea Nitrogen 35 mg/dL (9-23) Creatinine 1.30 mg/dL (0.550-1.02) Glomerular Filtration Rate Calc 45 mL/min (>90) BUN/Creatinine Ratio 26.9 (10.0-20.0) Serum Glucose 153 mg/dL (74-106) Calcium Level 8.9 mg/dL (8.7-10.4) Total Bilirubin 0.2 mg/dL (0.2-1.0) Aspartate Amino Transferase (AST) 45 U/L (13-40) Alanine Aminotransferase (ALT) 39 U/L (7-40) Alkaline Phosphatase 67 U/L (46-116) Total Protein 6.5 g/dL (5.7-8.2) Albumin 3.9 g/dL (3.2-4.8) POC Glucose 243 mg/dl (70-106) Troponin I High Sensitivity 17 ng/L (</=34) Urine Color Colorless (Yellow) Urine Clarity Turbid (Clear) Urine pH 5.0 (5.0-9.0) Urine Specific [place] 1.018 (1.001-1.035) Urine Protein Trace (Negative) Urine Ketones Negative (Negative) Urine Blood Trace /uL (Negative) Urine Nitrite 2+ (Negative) Urine Bilirubin Negative (Negative) Urine Urobilinogen Normal mg/dL (Negative) Urine Leukocyte Esterase 3+ /uL (Negative) Urine RBC 18 /hpf (0 - 4) Urine WBC Clumps Present /hpf (None Seen) Urine Microscopic WBC 172 /HPF (0-5) Urine Squamous Epithelial Cells Few /hpf (<5) Urine Bacteria Few /hpf (None Seen) Urine Mucus Few (None Seen) Urine Yeast (Budding) Few /hpf (None Seen) Urine Glucose 4+ mg/dL (Normal) Test 01/14/25 11:55 D-Dimer, Quantitative 2.33 mg/L FEU (0.0-0.49) Magnesium Level 2.4 mg/dL (1.6-2.6) B-Type Natriuretic Peptide 593.98 pg/mL (0-100) Other Laboratory Tests 01/15/25 05:53 Brief Hx & Hospital Course: The patient is a 70-year-old female with a past medical history of hypertension, hyperlipidemia, diabetes mellitus, and prior CABG (45 years ago), who presented to [facility] ED with complaints of spontaneous chest pain at rest and on exertion, rated 7/10 in severity. Initial evaluation revealed hypotension (BP 96/72), tachycardia (HR 133), and hypoxia (O2 sat 92% on oxygen). Laboratory findings were notable for elevated troponin (19), D-dimer (2.33), BNP (593.98), and creatinine (1.39), consistent with acute cardiac and renal involvement. CT angiography ruled out pulmonary embolism but showed a dilated main pulmonary artery suggestive of pulmonary arterial hypertension, mild to moderate cardiomegaly, and mild right lower lobe consolidation. The patient was admitted to the telemetry unit for further evaluation and management of acute chest pain, hypotension, tachycardia, acute kidney injury, left bundle branch block, and possible pneumonia. Treatment included oxygen therapy, IV antibiotics, pain control, breathing treatments, and cardiology consultation. Repeat labs and diagnostic monitoring were planned. Despite medical recommendations and discussion of risks, the patient elected to leave the hospital against medical advice (AMA). She verbalized understanding of her condition and the potential consequences of leaving prior to completion of treatment. Condition at Discharge: Stable Final Diagnosis/Problems List # Acute chest pain # Hypotension # Tachycardia # Acute renal injury # Left bundle branch block # Pneumonia, unspecified organism Discharge Disposition: AMA SNF Discharge Will this Physician continue t: No Discharge Instruct/Medications Activity: No Restrictions, As Tolerated Discharge Statement: "Patient was advised to return to the ER or call 911 if any headaches, dizziness, shortness of breath, chest pain, abdominal pain, bleeding, fevers, or worsening of medical condition. Patient was counseled about treatment plan, medications, possible side effects, patientverbalized understanding. All questions were answered to the best of my ability. This discharge took greater then 30 minutes in planning, reviewing documentation, counseling the patient, and discussing with other team members." ASSESSMENT ASSESSMENT Assessment Date of Service: Jan 15, 2025 Billing Provider: RUBÉN MONZON MD Common Visit Codes: 12667-TVY/OBS DISCH DAY <30MIN SANDEEP DANIEL Jan 15, 2025 12:41 RUBÉN MONZON MD Jan 19, 2025 20:57
[2025-01-15] MEDS ORDERED: AZITHROMYCIN 500MG/ 250ML 250 ML IV SCH (18:00)
--- NOTE | 2025-01-16 11:30 | ECG ---
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
--- NOTE | 2025-01-16 11:35 | ECG ---
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
--- NOTE | 2025-01-16 19:02 | ECG ---
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
== END 2025-01-15 10:31 | disposition left against medical advice (07) | DRG 177 ==
LOC: ER 10:05 → OVERFLOW 17:35
PROVIDERS: ADMIT Internal Medicine Geriatric Medicine; ATTEND Emergency Medicine
DX: J15.69 Pneumonia due to other Gram-negative bacteria (principal); N17.0 Acute kidney failure with tubular necrosis; R57.8 Other shock; N39.0 Urinary tract infection, site not specified; J15.9 Unspecified bacterial pneumonia; I27.21 Secondary pulmonary arterial hypertension; E11.9 Type 2 diabetes mellitus without complications; I10 Essential (primary) hypertension; I44.7 Left bundle-branch block, unspecified; I95.9 Hypotension, unspecified; E78.5 Hyperlipidemia, unspecified; R00.0 Tachycardia, unspecified; Z53.29 Procedure and treatment not carried out because of patient's decision for other reasons; Z95.1 Presence of aortocoronary bypass graft; Z90.49 Acquired absence of other specified parts of digestive tract; Z88.1 Allergy status to other antibiotic agents
CPT/HCPCS: 36415; 71045; 71275; 80053; 81001; 82962; 83735; 83880; 84484; 85025; 85379; 93005; 94640; 96365; G0378; J1815